=== PATIENT | female | born 1985 | race African-American/Black ===

== ENCOUNTER 2023-06-21 19:20 | Emergency (ER) | payer SELFPAY ==
[~2023-06-21] VITALS: Ht 157.5 cm; Wt 74.1 kg
[2023-06-21 19:21] VITALS: TEMP 97.7
[2023-06-21] MEDS ORDERED: NS 1,000 ML IV ONE (19:45)
[2023-06-21 19:59] LABS: BASO # 0.1 K/mm3 (0.0-0.2); BASO % 0.4 % (0.0-2.0); EOS # 0.1 K/mm3 (0.0-0.7); EOS % 0.5 % (0.0-4.0); GRAN # 13.9 K/mm3 (1.4-6.5); GRAN % 83.7 % (42.2-75.2); HEMOGLOBIN 10.9 g/dl (12.5-16.0); LYMPH # 1.8 K/mm3 (1.2-3.4); LYMPH % 10.8 % (20.0-51.0); MEAN CELL VOLUME 80 fl (80.0-100.0); MEAN CORPUSCULAR HEMOGLOBIN 25 pg (27-31); MEAN CORPUSCULAR HGB CONC 31 g/dl (33.0-37.0); MEAN PLATELET VOLUME 10.6 fl (7.4-10.4); MONO # 0.7 K/mm3 (0.1-0.6); MONO % 4.2 % (1.7-9.3); PLATELET COUNT 380 K/mm3 (130-400); RED BLOOD COUNT 4.45 M/mm3 (4.10-5.30); REDCELL DISTRIBUTION WIDTH-CV 15.9 % (11.5-14.5)
[2023-06-21] MEDS ORDERED: droPERidol 2.5 MG/ML 2 ML VIAL IV ONE (20:00)
[2023-06-21 20:01] LABS: HEMATOCRIT 35.5 % (37.0-47.0)
[2023-06-21 20:16] LABS: ALBUMIN 3.9 gm/dL (3.5-5.0); BILIRUBIN,TOTAL 0.5 mg/dL (0.2-1.2); CALCIUM 9.1 mg/dL (8.4-10.2); CREATININE, serum 0.69 mg/dL (0.57-1.11)
[2023-06-21] MEDS ORDERED: Ketorolac 15 MG/ML VIAL IV ONE (20:45)
[2023-06-21] MEDS ORDERED: Iohexol 300 - 100 ML VIAL IV ONE (20:49)
[2023-06-21] MEDS ORDERED: NS 64 ML IV SCH (20:50)
[2023-06-21 20:52] LABS: COLLECTION METHOD CLEAN CATCH
[2023-06-21 21:11] LABS: PH 5.5 (5.0-8.5); URINE APPEARANCE Cloudy (CLEAR/HAZY); URINE COLOR Amber (YELLOW); URINE GLUCOSE Negative (NEGATIVE); URINE KETONE 1+ (NEGATIVE); URINE NITRATE Negative (NEGATIVE); URINE PROTEIN(semi-quant) 2+ (NEGATIVE); URINE UROBILINOGEN 0.2 E.U/dL (0.2-1.0)
[2023-06-21 21:22] LABS: MUCOUS Present (NOT PRESENT); URINE BACTERIA Rare /hpf (NONE SEEN); URINE BLOOD 3+ (NEGATIVE); URINE RBC 20-50 /hpf (0-2)
[2023-06-21] MEDS ORDERED: Home HYDROcodone/Acetaminophen 5/325 MG #4 TABS/PACK PO ONE (21:30)
[2023-06-21 21:55] VITALS: BP 111/69; PULSE 92
== END 2023-06-21 21:55 | disposition home or self-care (01) ==
LOC: COL.ER 19:20
PROVIDERS: Nurse Practitioner
DX: N13.2 Hydronephrosis with renal and ureteral calculous obstruction (principal); E87.6 Hypokalemia; D72.829 Elevated white blood cell count, unspecified
CPT/HCPCS: J1790; J1885; J7030; Q9967